=== PATIENT | male | born 1970 | race Caucasian/White ===

== ENCOUNTER → 2023-07-03 06:32 | Day surgery (SDC) | payer OTHER, SELFPAY ==
[2023-07-03 09:22] LABS: Glucose - Point of Care 105 mg/dl (70-99)
== END ==
LOC: GI 06:32
PROVIDERS: ATTENDING PHYSICIAN Surgery
DX: Z12.11 Encounter for screening for malignant neoplasm of colon (principal); K57.30 Diverticulosis of large intestine without perforation or abscess without bleeding; K64.4 Residual hemorrhoidal skin tags; D12.3 Benign neoplasm of transverse colon
CPT/HCPCS: 45380; 88305; 82962